=== PATIENT | female | born 1970 | race Caucasian/White ===

== ENCOUNTER 2022-10-08 17:20 | Emergency (ER) | payer BC, OTHER ==
[~2022-10-08] VITALS: Ht 170.2 cm; Wt 65.8 kg
[2022-10-08] MEDS ORDERED: IV NS 0.9% 1,000 ML BAG IV ONE (18:00)
[2022-10-08] MEDS ORDERED: KETOROLAC TROMETHAMINE INJ 30 MG/ML VIAL IV ONE (18:00)
[2022-10-08] MEDS ORDERED: diphenhydrAMINE HCL 50 MG/ML VIAL IV ONE (18:00)
[2022-10-08] MEDS ORDERED: METOCLOPRAMIDE HCL 10 MG/2 ML VIAL IV ONE (18:00)
--- NOTE | 2022-10-08 18:00 | NUR ---
medicated as order
[2022-10-08] MEDS ORDERED: METOCLOPRAMIDE HCL 10 MG/2 ML VIAL ONE (18:01)
[2022-10-08] MEDS ORDERED: diphenhydrAMINE HCL 50 MG/ML VIAL ONE (18:01)
[2022-10-08] MEDS ORDERED: KETOROLAC TROMETHAMINE INJ 30 MG/ML VIAL ONE (18:01)
--- NOTE | 2022-10-08 18:15 | NUR ---
ESTABLISHED IV ACCESS 20G LEFT FOREARM. BLOOD DRAWN, SENT TO LAB.
[2022-10-08] MEDS ORDERED: METO-295 PO (18:47)
[2022-10-08 19:00] VITALS: BP 122/77
--- NOTE | 2022-10-08 19:00 | NUR ---
Patient discharged to home in stable condition. Written and verbal after care instructions given. Patient verbalizes understanding of instruction.
--- NOTE | 2022-10-08 19:00 | NUR ---
IV removed. Catheter intact and site benign. Pressure and 4x4 applied to site. No bleeding noted.
== END 2022-10-08 19:01 | disposition home or self-care (01) ==
LOC: ER 17:28
DX: G43.909 Migraine, unspecified, not intractable, without status migrainosus (principal); Z60.2 Problems related to living alone
CPT/HCPCS: 99284; 96374; 96375; 96361; J1200; J2765; J1885; J7030